=== PATIENT | male | born 1940 | race Caucasian/White ===

== ENCOUNTER → 2018-10-26 | Outpatient (CLI) | payer OTHER ==
[2018-10-26 09:02] LABS: African American GFR (CKD) >90 (>60 ml/min/1.73 sqM); Blood Urea Nitrogen 11 mg/dL (9-20)
--- NOTE | 2018-10-26 15:58 | CT ---
EXAMINATION TYPE: CT abdomen w con DATE OF EXAM: 10/26/2018 COMPARISON: NONE HISTORY: 78-year-old male on specified abdominal pain, stomach issues TECHNIQUE: Contiguous axial scanning of the abdomen following administration of 100 ml Isovue 300 IV contrast. Delayed images through the kidneys and coronal/sagittal reconstructions performed. CT DLP: 437.1 mGycm Automated exposure control for dose reduction was used. FINDINGS: Heart normal size without pericardial effusion. There is some patchy reticulonodular infiltrate at th e right greater than left lung bases. Tiny hiatal hernia. There is circumferential wall thickening especially of the gastric antrum and pylorus and somewhat lo ss of the expected rugal folds in the fundus and body. No focal liver lesion or biliary ductal dilatation. Portal venous system is patent on the delayed kid suresh images. Gallbladder, adrenal glands, kidneys, and pancreas appear within normal limits. Calcified granulomas in the spleen with hilar splenule. Moderate atherosclerotic calcifications abdominal aorta and iliac arteries. No dilated small bowel, free fluid, or free air. No mesenteric or retroperitoneal lymphadenopathy. Mo derate scattered colonic stool. No pericolonic inflammatory change. The pelvis is not imaged. Bones: Advanced degenerative disc disease as well as hypertrophic facet arthropathy throughout the vi sualized lumbar spine. IMPRESSION: 1. LOSS OF EXPECTED RUGAL FOLDS IN THE FUNDUS AND BODY OF THE STOMACH, POSSIBLE ATROPHIC GASTRITIS. 2. HOWEVER, THERE IS INCREASED CIRCUMFERENTIAL WALL THICKENING OF THE GASTRIC ANTRUM AND PYLORUS SUGG ESTING MODERATE FOCAL GASTRITIS. DIRECT VISUALIZATION RECOMMENDED. 3. TINY HIATAL HERNIA. 4. INTERSTITIAL CHANGES IN THE LOWER LUNGS COULD REPRESENT CHRONIC FIBROSIS. SOME AREAS OF SUBTLE INF ILTRATE ARE DIFFICULT TO EXCLUDE AT THE RIGHT BASE. CORRELATE FOR ANY ACUTE RESPIRATORY SYMPTOMS.
== END | disposition home or self-care (01) ==
LOC: RADCTMAIN 08:13
DX: K44.9 Diaphragmatic hernia without obstruction or gangrene (principal); K63.89 Other specified diseases of intestine; R10.9 Unspecified abdominal pain
CPT/HCPCS: 82565; 84520; 74160; 36415; Q9967

== ENCOUNTER 2018-10-30 12:24 | Day surgery (SDC) | payer OTHER ==
[2018-10-29 09:36] VITALS: BMI 24.5
[~2018-10-30 12:24] MED LIST: LACTATED RINGERS 1,000 ML IV SCH; LIDOCAINE 1% 20 ML VIAL (10MG/ML) FOR IV START INTRADERMA PRN
[2018-10-30 13:25] VITALS: TEMP 97.6
[2018-10-30] MEDS ORDERED: PROPOFOL 10 MG/ML 20 ML VIAL IV ONE (13:46)
[2018-10-30] MEDS ORDERED: IV FLUID CONTINUATION 1,000 ML IV ONE (14:12)
--- NOTE | 2018-10-30 14:24 | P.PCN ---
Date of Procedure: 10/30/18 Procedure(s) Performed: BRIEF HISTORY: Patient is a 78-year-old, pleasant, male, scheduled for an upper endoscopy as a part of evaluation of epigastric discomfort, early satiety and because of 20 pounds in the last 4 months duration. He was given a trial of Zantac 150 milligrams twice daily with no help. Recent CT of abdomen and pelvis showed thickened gastric folds. His and scheduled for an upper endoscopy to evaluate further.. PROCEDURE PERFORMED: Esophagogastroduodenoscopy with multiple biopsies. PREOPERATIVE DIAGNOSIS: Epigastric pain/early satiety and weight loss of 20 pounds of 4 months duration. IV sedation per anesthesia. PROCEDURE: After informed consent was obtained, the patient was brought into the endoscopy unit. IV sedation was administered by Anesthesia under continuous monitoring. Initially the Olympus GIF-140 video endoscope was inserted into the mouth. Esophagus intubated without any difficulty. It was gradually advanced into the stomach and duodenum and carefully examined. The bulb and the second part of the duodenum appeared normal. The scope at this time was withdrawn to the stomach, and there was diffuse thickening of the gastric folds especially in antrum of the stomach. Despite adequate insufflation of air was noted in the distal the stomach which was very suspicious for infiltrating neoplasm/linitis plastica Multiple biopsies were done from the antrum of the stomach. The mucosa involving the body and fundus of the stomach was very thickened and erythematous but I was able to inflate the gastric fundus. Multiple biopsies were done from the distal body the stomach. The scope was then withdrawn into the esophagus. The GE junction was located at 39 cm from the incisors. The esophagus appeared normal. There were no erosions or ulcerations seen and the patient tolerated the procedure well. IMPRESSION: 1. Severe thickening of the gastric folds in the antrum of the stomach which could not be adequately insufflated with air suspicious for infiltrating neoplasm/linitis plastica status post multiple biopsies. 2. Diffuse gastritis with thickening of the folds involving the gastric body and fundus status post multiple biopsies. RECOMMENDATIONS: The findings of this examination were discussed with the patient as well as his family. He'll be seen in office in early next week to discuss the biopsy results. In the meantime he will continue with small frequent meals..
[2018-10-30 14:29] VITALS: BP 121/70; PULSE 78; RESP 18
== END 2018-10-30 14:58 | disposition home or self-care (01) ==
LOC: ORWHC2ENDO 12:24
PROVIDERS: ATTEND Internal Medicine Gastroenterology
DX: C16.3 Malignant neoplasm of pyloric antrum (principal); C16.2 Malignant neoplasm of body of stomach; K29.70 Gastritis, unspecified, without bleeding; K21.9 Gastro-esophageal reflux disease without esophagitis; J44.9 Chronic obstructive pulmonary disease, unspecified; Z79.899 Other long term (current) drug therapy; Z91.040 Latex allergy status; Z91.048 Other nonmedicinal substance allergy status
CPT/HCPCS: 43239; J2704; 88305; 88341; 88342

== ENCOUNTER → 2018-11-07 | Outpatient (CLI) | payer OTHER ==
--- NOTE | 2018-11-07 19:23 | PE ---
EXAMINATION TYPE: PET CT fusion skull to thigh DATE OF EXAM: 11/07/2018 COMPARISON: CT abdomen October 26, 2018 HISTORY: Gastric cancer presumed diagnosed on recent endoscopy TECHNIQUE: Following the intravenous administration of 13.09 mCi of F-18 FDG, whole body images are performed from the skull base to the midthigh. Images are reviewed on the computer in the coronal, a xial, and sagittal planes. Reconstructed rotating images are created on independent workstation and reviewed on the computer. A noncontrast CT is performed in conjunction with the PET scan. SCAN: Initial Scan FINDINGS: SKULL BASE AND NECK: No areas of suspicious hypermetabolic uptake. CHEST, MEDIASTINUM, AND HILAR REGION: No areas of suspicious hypermetabolic uptake. ABDOMEN AND PELVIS: There is fairly moderate concentric wall thickening without definitive abnormal h ypermetabolic uptake. No areas of suspicious hypermetabolic uptake are identified in the abdomen or p ray. No suspicious intra-abdominal adenopathy is seen. OSSEOUS STRUCTURES: No suspicious hypermetabolic uptake. OTHER CT: Mucosal thickening and patchy opacification bilateral ethmoid sinuses. Roughly 2 cm mucous retention cyst or polyp posterior right maxillary sinus. Mild calcified plaque left carotid ball. Moderate to advanced emphysematous change in bilateral lungs most prominent in the upper lobes with s cattered calcified nodules are granulomas throughout the right lung. Calcified right hilar and subcar inal lymph nodes. Scattered calcifications throughout the spleen. Findings are consistent with produc t of old granulomatous disease. Mild to moderate coronary artery calcification is present which is no charles marked underlying coronary artery disease. Moderate to severe calcified plaque of the distal abdominal aorta extending into iliac branch vessels . Numerous coils anterior pelvic wall likely from hernia repair surgery. Enlarged prostate consistent with BPH bulging on the bladder base. Mild wall thickening on poorly distended bladder presumed rela charles to outlet obstruction from BPH. Straightening of lumbar spine with moderate to severe multilevel spurring and disc space narrowing. IMPRESSION: No suspicious hypermetabolic uptake to suggest metastatic malignancy. No suspicious hyper metabolic uptake in the stomach which shows moderate concentric wall thickening. No suspicious adjace nt adenopathy. Perhaps patient had mucosal lesion which was completely excised?
== END | disposition home or self-care (01) ==
LOC: RADPETMAIN 12:23
PROVIDERS: ATTEND Nurse Practitioner Acute Care
DX: C16.2 Malignant neoplasm of body of stomach (principal)
CPT/HCPCS: 78815; A9552